=== PATIENT | male | born 1970 | race African-American/Black ===

== ENCOUNTER 2017-11-12 17:18 | Emergency (ER) | payer OTHER ==
[~2017-11-12] VITALS: Ht 182.9 cm; Wt 102.5 kg
--- NOTE | ~2017-11-12 | EKG ---
[address] [place] [address] ELECTROCARDIOGRAM REPORT Name: JEANINE BILL Room #: DEP FRANK Light#: [id number] Admission: 11/12/17 Attend Phys: Discharge: 11/12/17 Date of : 70 Report #: [id number] THIS REPORT FOR: //name// [facility] ED Test Date: 2017-11-12 Test Time: 17:32:48 Pat Name: JEANINE IBLL Department: Room: Gender: Beautician Apprentice: Eugenie HANSEN : 1970 Requested By: Alba Ang Order Number: [id number] MD: Wilfredo Luna Measurements Intervals [place] Rate: 59 P: 28 MS: 170 QRS: 43 QRSD: 81 T: 4 QT: 384 QTc: 381 Interpretive Statements Sinus rhythm Borderline T wave abnormalities Borderline ST elevation, lateral leads No previous ECG available for comparison Electronically Signed On 11-13-2017 8:10:42 CDT by Wilfredo Luna [email or web address] <ELECTRONICALLY SIGNED> By: Wilfredo Luna MD, [facility] 11/13/17 0810 1732 1732 Wilfredo Luna MD, FACC /EPI
[2017-11-12 17:39] LABS: HEMATOCRIT 37.8 % (42.0-52.0); HEMOGLOBIN 12.9 gm/dL (14.0-18.0); MCH 30.9 pg (26.0-34.0); MCHC 34.1 g/dL (28.0-37.0); MCV 90.6 fL (80.0-100.0); PLATELET COUNT 263 thou/uL (150-400); RBC 4.17 mil/uL (4.50-6.00); RDW 14.8 % (10.5-14.5); WBC 5.7 thou/uL (4.0-11.0)
[2017-11-12 17:49] LABS: ANION GAP 8 mmol/L (7-16); BUN 22 mg/dL (7-18); CALCIUM 9.2 mg/dL (8.5-10.1); CHLORIDE 105 mmol/L (98-107); CO2 23 mmol/L (21-32); CREATININE 1.6 mg/dL (0.7-1.3); GLUCOSE 135 mg/dL (74-106); SODIUM 136 mmol/L (136-145)
[2017-11-12 17:55] LABS: AMP/METHAMP Negative (Negative); BARBITURATES Negative (Negative); BENZODIAZEPINES Negative (Negative); COCAINE Negative (Negative); METHADONE Negative (Negative); OPIATES Negative (Negative); PCP Negative (Negative)
[2017-11-12 17:58] LABS: ALBUMIN 3.7 g/dL (3.4-5.0); SGOT 19 U/L (15-37); SGPT 25 U/L (30-65); TOTAL BILIRUBIN 0.2 mg/dL (<0.1-1.0); TOTAL PROTEIN 7.3 g/dL (6.4-8.2); TROPONIN-I < 0.04 ng/mL (<0.06)
[2017-11-12 18:27] LABS: URINE BILIRUBIN NEGATIVE (Negative); URINE BLOOD TRACE (Negative); URINE CLARITY CLEAR; URINE COLOR YELLOW; URINE GLUCOSE-RANDOM* NEGATIVE (Negative); URINE KETONES TRACE (Negative); URINE LEUKOCYTES NEGATIVE (Negative); URINE NITRITE NEGATIVE (Negative); URINE PROTEIN (DIPSTICK) NEGATIVE (Negative); URINE SPECIFIC GRAVITY >= 1.030 (1.005-1.035); URINE UROBILINOGEN 0.2 E.U./dl (0.2-1.0)
[2017-11-12] MEDS ORDERED: PEPCID20 MG PO (20:22)
[2017-11-12 20:52] VITALS: BP 106/64
== END 2017-11-12 20:57 | disposition home or self-care (01) ==
LOC: ER 17:18
PROVIDERS: Physician Assistant
DX: R55 Syncope and collapse (principal); E86.0 Dehydration; R10.13 Epigastric pain; S01.511A Laceration without foreign body of lip, initial encounter; X58.XXXA Exposure to other specified factors, initial encounter; Y93.89 Activity, other specified; Y92.89 Other specified places as the place of occurrence of the external cause; Y99.8 Other external cause status